=== PATIENT | female | born 1995 | race Caucasian/White ===

== ENCOUNTER 2017-12-29 12:17 | Emergency (ER) | payer BC, OTHER ==
[~2017-12-29] VITALS: Ht 170.2 cm; Wt 62.1 kg
[2017-12-29 12:20] VITALS: Ht 170.2 cm; Wt 62.1 kg
[2017-12-29] MEDS ORDERED: ONDANSETRON INJ 2 MG/ML 2 ML VIAL IV STA ×2 (12:40→14:44)
[2017-12-29] MEDS ORDERED: SODIUM CHLORIDE 0.9% 1000ML 2,000 ML IV STA (12:40)
[2017-12-29 12:53] LABS: BASO % 0.2 %; BASO ABS # 0.02 K/uL (0-0.2); EOS % 1.8 %; EOS ABS # 0.15 K/uL (0-0.5); HEMATOCRIT 42.4 % (37-47); HEMOGLOBIN 14.7 g/dL (12.0-16.0); IG# 0.02 K/uL (0.00-0.02); LYMPH % 10.9 %; MEAN CELL VOLUME 86.2 fL (80-100); MEAN CORPUSCULAR HEMOGLOBIN 29.9 pg (25-34); MEAN CORPUSCULAR HGB CONC 34.7 g/dl (32-36); MEAN PLATELET VOLUME 10.2 fL (7.4-10.4); MONO % 3.5 %; MONO ABS # 0.29 K/uL (0.11-0.59); NEUT % 83.4 %; NEUT ABS # 6.86 K/uL (1.4-6.5); PLATELET COUNT 277 K/uL (130-400); RED CELL DISTRIBUTION WIDTH CV 12.8 % (11.5-14.5); RED CELL DISTRIBUTION WIDTH SD 40.8 fL (36.4-46.3); WHITE BLOOD COUNT 8.24 K/uL (4.8-10.8)
[2017-12-29] MEDS ORDERED: BCPILLS PO (13:06)
[2017-12-29 13:24] LABS: ALBUMIN 3.8 gm/dl (3.4-5.0); CALCIUM 9.2 mg/dl (8.5-10.1); CREATININE 0.77 mg/dl (0.60-1.20); POTASSIUM 3.7 mmol/L (3.5-5.1); TOTAL PROTEIN 7.9 gm/dl (6.4-8.2)
[2017-12-29] MEDS ORDERED: ONDA4TAB10 SL (14:35)
--- NOTE | 2017-12-29 14:35 | EMERGENCY ROOM VISIT NOTE ---
History First contact with patient: 12:25 Chief Complaint: VOMITING Stated Complaint: THROWING UP, LOW TEMP Nursing Triage Summary: Patient presents with c/o acute onset of vomiting and diarrhea abdominal pain intermittently began last night History of Present Illness Patient is an otherwise healthy 22-year-old white female who presents emergency department accompanied by a female friend for evaluation of nausea, vomiting and diarrhea that began acutely about 6 hours ago. Patient reports that she was home in [place] for the weekend and returned yesterday evening. She states that she was well throughout the weekend and was without complaints and was in her usual state of health when she went to bed last night. She states she woke up around 05 30 this morning with an upset stomach and nausea, went back to sleep for about an hour which point she woke up again feeling nauseous, queasy and subsequently vomited and had diarrhea. She reports multiple episodes of vomiting and diarrhea since. She tried to eat an [place] muffin at around 10:00, she promptly vomited that up upon arrival in her exam room. She is tried sipping on some Gatorade. She tried to take her temperature at one point and noted that it was low. She called her mom who reports feeling some similar symptoms earlier this morning including nausea, but reports that those symptoms were fairly short-lived. The patient is not aware of any unusual food or water consumption over the last several days. She reports that she traveled to the [facility] for Spring Break about a month ago. She did a Z-Bernard for an upper respiratory illness in November, otherwise no other recent antibiotics. She denies melena, hematochezia or hematemesis. She denies any abdominal pain just reports feeling very nauseous. She denies any recent alcohol consumption. Review of Systems Review of systems as per HPI. All other systems reviewed were negative. 10 systems reviewed. Past Medical/Surgical History Medical Problems: (1) Fracture of right elbow (2) No Known Active Medical Problems Surgical Problems: (1) History of rhinoplasty Electronic medical records are reviewed and summarized as above/below. See Problem List. Social History Smoking Status: Never Smoker Alcohol Use: occasionally Housing Status: lives with roommate Occupation Status: [employer] Current/Historical Medications Scheduled Control Pills ( Control Pills), 1 TAB PO DAILY Scheduled PRN Ondasetron Odt (Zofran Odt), 4 MG SL Q4 PRN for Nausea or Vomiting Physical Exam Vital Signs Date Time Temp Pulse Resp B/P (MAP) Pulse Ox O2 Delivery O2 Flow Rate FiO2 12/29/17 19:29 12/29/17 19:08 100 17 102/68 100 Room Air 12/29/17 17:19 87 12/29/17 16:55 37.1 89 25 108/59 99 Room Air 12/29/17 14:42 88 16 112/80 100 Room Air 12/29/17 13:33 36.9 89 16 104/69 100 Room Air 12/29/17 12:20 36.3 100 20 111/83 100 Room Air Physical Exam CONSTITUTIONAL: Patient is a well-appearing 22-year-old white female who is awake and alert and in no acute distress. She vomited in the garbage can upon entering the exam room. EYES: Pupils equal, round, reactive to light and accommodation. EOMs intact without nystagmus. Sclera are anicteric. ENT: Tympanic membranes intact, with normal landmarks. External canals are clear. Oral and nasopharynx are clear. Mucous membranes are moist, no lesions , tongue and gums appear normal. NECK: Supple without lymphadenopathy. No thyromegaly. No meningeal signs. Full active range of motion without discomfort. CARDIOVASCULAR: Regular rate and rhythm, with normal S1 and S2, no murmur or gallop or rub is heard. No carotid bruits auscultated. No JVD. Peripheral pulses easily palpable. RESPIRATORY: Breath sounds equal and clear to auscultation without wheezes, rales, or rhonchi heard. Full and equal chest expansion without accessory muscle use or retractions. ABDOMEN: Bowel sounds are present. Abdomen is soft, scaphoid, mildly tender in the epigastric and the left upper quadrant, no guarding, rebound or rigidity. There is no pain in the right lower quadrant over McBurney's point. INTEGUMENTARY: No lesions or rash, normal skin turgor. LYMPH: No lymphadenopathy. Medical Decision & Procedures Laboratory Results 12/29/17 12:40 Red Blood Count 4.92, Mean Corpuscular Volume 86.2, Mean Corpuscular Hemoglobin 29.9, Mean Corpuscular Hemoglobin Concent 34.7, Mean Platelet Volume 10.2, Neutrophils (%) (Auto) 83.4, Lymphocytes (%) (Auto) 10.9, Monocytes (%) (Auto) 3.5, Eosinophils (%) (Auto) 1.8, Basophils (%) (Auto) 0.2, Neutrophils # (Auto) 6.86, Lymphocytes # (Auto) 0.90, Monocytes # (Auto) 0.29, Eosinophils # (Auto) 0.15, Basophils # (Auto) 0.02 12/29/17 12:40 Test 12/29/17 12:40 12/29/17 14:00 12/29/17 17:05 White Blood Count 8.24 K/uL (4.8-10.8) Red Blood Count 4.92 M/uL (4.2-5.4) Hemoglobin 14.7 g/dL (12.0-16.0) Hematocrit 42.4 % (37-47) Mean Corpuscular Volume 86.2 fL (80-100) Mean Corpuscular Hemoglobin 29.9 pg (25-34) Mean Corpuscular Hemoglobin Concent 34.7 g/dl (32-36) Platelet Count 277 K/uL (130-400) Mean Platelet Volume 10.2 fL (7.4-10.4) Neutrophils (%) (Auto) 83.4 % Lymphocytes (%) (Auto) 10.9 % Monocytes (%) (Auto) 3.5 % Eosinophils (%) (Auto) 1.8 % Basophils (%) (Auto) 0.2 % Neutrophils # (Auto) 6.86 K/uL (1.4-6.5) Lymphocytes # (Auto) 0.90 K/uL (1.2-3.4) Monocytes # (Auto) 0.29 K/uL (0.11-0.59) Eosinophils # (Auto) 0.15 K/uL (0-0.5) Basophils # (Auto) 0.02 K/uL (0-0.2) RDW Standard Deviation 40.8 fL (36.4-46.3) RDW Coefficient of Variation 12.8 % (11.5-14.5) Immature Granulocyte % (Auto) 0.2 % Immature Granulocyte # (Auto) 0.02 K/uL (0.00-0.02) Anion Gap 9.0 mmol/L (3-11) Est Creatinine Clear Calc Drug Dose 111.5 ml/min Estimated GFR () 127.0 Estimated GFR (Non- 109.6 BUN/Creatinine Ratio 10.9 (10-20) Calcium Level 9.2 mg/dl (8.5-10.1) Total Bilirubin 0.8 mg/dl (0.2-1) Aspartate Amino Transf (AST/SGOT) 16 U/L (15-37) Alanine Aminotransferase (ALT/SGPT) 18 U/L (12-78) Alkaline Phosphatase 109 U/L (45-117) Total Protein 7.9 gm/dl (6.4-8.2) Albumin 3.8 gm/dl (3.4-5.0) Globulin 4.1 gm/dl (2.5-4.0) Albumin/Globulin Ratio 0.9 (0.9-2) Lipase 165 U/L (73-393) Human Chorionic Gonadotropin, Qual NEG (NEG) Urine Color YELLOW Urine Appearance CLEAR (CLEAR) Urine pH 6.0 (4.5-7.5) Urine Specific [place] 1.008 (1.000-1.030) Urine Protein NEG (NEG) Urine Glucose (UA) NEG (NEG) Urine Ketones TRACE (NEG) Urine Occult Blood NEG (NEG) Urine Nitrite NEG (NEG) Urine Bilirubin NEG (NEG) Urine Urobilinogen NEG (NEG) Urine Leukocyte Esterase NEG (NEG) Influenza Type A Antigen Neg for Influ A (NEG) Influenza Type B Antigen Neg for Influ B (NEG) Medications Administered Medications (Trade) Dose Ordered Sig/[place]aly[place] Route Start Time Stop Time Status Last Admin Dose Admin Sodium Chloride 2,000 ml @ 999 mls/hr Q2H1M STAT IV 12/29/17 12:40 12/29/17 14:48 DC 12/29/17 12:40 999 MLS/HR Ondansetron HCl (Zofran Inj) 4 mg NOW STAT IV 12/29/17 12:40 12/29/17 12:41 DC 12/29/17 12:55 4 MG Ondansetron HCl (Zofran Inj) 4 mg NOW STAT IV 12/29/17 14:44 12/29/17 14:48 DC 12/29/17 14:56 4 MG Prochlorperazine Edisylate (Compazine Inj) 10 mg NOW STAT IV 12/29/17 15:31 12/29/17 15:32 DC 12/29/17 15:44 10 MG Diphenhydramine HCl (Benadryl Inj) 25 mg NOW STAT IV 12/29/17 15:31 12/29/17 15:32 DC 12/29/17 15:44 25 MG Sodium Chloride 1,000 ml @ 999 mls/hr Q1H1M STAT IV 12/29/17 17:07 12/29/17 18:07 DC 12/29/17 17:07 999 MLS/HR ED Course The patient was seen and evaluated as above. Her old records are reviewed. She presents the emergency department for evaluation of acute vomiting and diarrheal illness for the last 6 hours. IV lock was initiated, she was medicated with Zofran 4 mg IV and given a 2 L bolus of normal saline solution. CBC with differential, CMP, lipase, serum hCG and urinalysis were ordered. Laboratory studies were unremarkable, no leukocytosis, left shift or bandemia. H&H is normal. No electrolyte, renal function or liver function abnormalities are noted. Lipase is not elevated. Serum hCG is negative. The patient was reassessed. Her IV fluids had completed, she was able to provide a urine sample for analysis and was asking if she could try some oral fluids. She was she had Gatorade from home that she tried. Urine sample noted trace ketones only. Patient was reassessed after about 30 minutes and reported that her was beginning to return. She was told to stop drinking and taking ice chips, and was given additional dose of Zofran IV. Supportive care measures were discussed with her. I suspect her illness is likely viral in nature, particularly given that her mother has been ill with similar symptoms. Patient was given a second dose of Zofran IV, and promptly vomited twice. She was given Compazine 10 mg IV and Benadryl 25 mg IV and instructed to stop drinking. She claimed that she was very thirsty and was given ice chips to keep her mouth moist only. The patient was again reassessed, and was found to be tolerating oral fluids without difficulty. This point, she was prepared for discharge. She had been given her discharge instructions and was reportedly walking out of the bathroom when she began to feel dizzy and knelt down on the floor, leaning over on the gurney. This was witnessed by her friend who promptly alerted nursing staff who attended to the patient and notified me. The patient did vomit during this episode. There was no overt syncope. Her vital signs remained stable. She was reassessed by myself while she was laying supine on the gurney, and did appear a little pale and diaphoretic. She was only mildly tachycardic. IV was reinitiated and she was given an additional liter of normal saline solution. With the patient's permission, I did speak with her mother via telephone to update her on the patient's condition and the ED workup to this point. The mother requested that a flu swab be performed, which was and was negative. She was reassessed frequently and reported fairly quick resolution of her symptoms. She again was given water and Powerade which she tolerated. She stated that her father was en route from [place] and was a roughly 1 hour away from the emergency department. She had no additional transportation and therefore was held here until her father arrived. She remained hemodynamically stable, with no further vomiting or diarrhea by the time her father had arrived. I suspect the patient may have had a vasovagal or an orthostatic episode when she was returning from the bathroom after being supine on the gurney for several hours, certainly her recent illness could also play a role in how she is feeling. She is feeling well now, and is felt to be safe to be discharged back to her apartment. She was provided a prescription for Zofran to use as needed for nausea. Slow sips for oral rehydration were discussed. She was advised that the diarrhea may persist for another 1-2 days as the illness runs its course. She does not have any localized abdominal pain, and therefore further imaging was not felt to be indicated at this time. She was welcome to return to the emergency department at any point for worsening symptoms. She is discharged home with her father in stable condition. Differential diagnoses entertained included infectious versus inflammatory colitis/enteritis, food borne illness, gastritis, esophagitis, pancreatitis, biliary colic, among others. Medical Decision See ED Course. Medication Reconcilliation Current Medication List: was personally reviewed by me Blood Pressure Screening Patient's blood pressure: Normal blood pressure Impression Primary Impression: Nausea, vomiting, and diarrhea Departure Information Prescriptions Ondasetron Odt (ZOFRAN ODT) 4 Mg Tab 4 MG SL Q4 Y for Nausea or Vomiting, #20 TAB Prov: Nancy Wang PA 12/29/17 Referrals No Doctor, Assigned (PCP) Patient Instructions My [facility] Additional Instructions Zofran(odansetron) tablets 4mg: Take one and allow it to dissolve in your mouth every four to six hours as needed for nausea or vomiting. Acetaminophen(Tylenol) may be used for fever or pain. Use 1000mg every six hours as needed. Avoid using more than 4000mg in a 24 hour period. Rest and drink plenty of fluids as tolerated. Slow sips of water or sports drinks are recommended instead of large amounts all at once. Continue current medications. Once your stomach is settled start with a clear liquid diet (jello, soup broth, etc.) and then advance as tolerated. You should avoid full, heavy meals for about 24 hrs from the time your symptoms resolved. Avoid dairy products until you have been diarrhea-free x 48 hours. Return to the ER for persistent vomiting, fevers, abdominal pain, chest pains, difficulty breathing, black or bloody stools, worsening of your condition, or as needed. Follow up with your primary physician in 2-3 days for a recheck of your current condition.
[2017-12-29] MEDS ORDERED: PROCHLORPERAZINE 5 MG/ML 2 ML VIAL IV STA (15:31)
[2017-12-29] MEDS ORDERED: DiphenhydrAMINE HCL 50 MG/ML VIAL IV STA (15:31)
[2017-12-29 16:55] VITALS: TEMP 37.1
[2017-12-29] MEDS ORDERED: SODIUM CHLORIDE 0.9% 1000ML 1,000 ML IV STA (17:07)
[2017-12-29 17:59] LABS: INFLUENZA B ANTIGEN Neg for Influ B (NEG)
[2017-12-29 19:08] VITALS: BP 102/68; PULSE 100; O2SAT 100
== END 2017-12-29 19:31 | disposition home or self-care (01) ==
LOC: C.EDB 12:18 → C.EDA 19:31
DX: R11.2 Nausea with vomiting, unspecified (principal); R19.7 Diarrhea, unspecified